=== PATIENT | male | born 1980 | race Caucasian/White ===

== ENCOUNTER → 2017-10-16 | Outpatient (CLI) | payer OTHER ==
[~2017-10-16] VITALS: Ht 185.4 cm; Wt 133.1 kg
[2017-10-16 12:57] VITALS: BP 162/88; PULSE 92; Ht 185.4 cm; Wt 133.1 kg
== END | disposition home or self-care (01) ==
LOC: C.NEUR 12:30
PROVIDERS: ATTEND Internal Medicine Pulmonary Disease
DX: G47.30 Sleep apnea, unspecified (principal); E66.9 Obesity, unspecified; I10 Essential (primary) hypertension

== ENCOUNTER → 2017-11-20 | Outpatient (CLI) | payer OTHER | END | disposition home or self-care (01) | LOC: C.NEUR 08:30 | PROVIDERS: ATTEND Internal Medicine Pulmonary Disease | DX: G47.30 Sleep apnea, unspecified (principal) ==

== ENCOUNTER → 2017-12-25 | Outpatient (CLI) | payer OTHER ==
[~2017-12-25] VITALS: Ht 185.4 cm; Wt 131.5 kg
[2017-12-25 15:27] VITALS: BP 153/90; PULSE 80; Ht 185.4 cm; Wt 131.5 kg
== END | disposition home or self-care (01) ==
LOC: C.NEUR 14:20
PROVIDERS: ATTEND Physician Assistant Medical
DX: G47.30 Sleep apnea, unspecified (principal); E66.9 Obesity, unspecified; I10 Essential (primary) hypertension

== ENCOUNTER → 2018-01-03 | Outpatient (CLI) | payer OTHER ==
--- NOTE | 2018-01-04 06:30 | PAP/PSG TECHNICIAN REPORT ---
[facility] Captain Airline Pilot Polysomnogram Report Study name: None Report date: 01/04/2018 Study date: 01/03/2018 Referring Physician: Santiago Chamorro M.D. Name: ORLANDO SHALOM Interpreting Physician: Santiago Chamorro M.D. Date of : 1980 Captain Airline Pilot: Jessica Saunders RPSGT. Sex: Male Age: 37 Study Type: PSG PAP Weight: 289 lbs 18 in Height: 37 years, Height 6' 1" Neck Circum: BMI: 38.12 Medications: NONE REPORTED Patient History 37 yr-old male here for a new CPAP treatment study. He was found to be positive for JOSE via a home sleep study. His AHI was 65. He chose a Mirage FX Soft edge nasal mask size standard from [employer]. The test was started on room air and 4 CMH2O. ETCO2 testing was not utilized during this study. Room 1 Parameters Monitored NPSG: E1-M2, E2-M1, Fp1-M2, Fp2-M1, F3-M2, F4-M2, F4-M1, C3-M2, C4-M2, C4-M1, O1-M2, O2-M2, O2-M1, T3-M2, T4-M1, P3-M2, P4-M1, CHIN1, CHIN2, HR, EKG, Legs, PFLOW, SNOR, FLOW, CFLOW, Tidal Volume, THOR, ABDO, SpO2, PLTH, CPRESS, ETCO2 Wave, ETCO2, pH Sleep Architecture Sleep Stages Time at Lights Off 10:19:34 PM STAGES Time (min.) TST (%) Time at Lights On 5:33:04 AM Wake 48.5 -- Total Recording Time (TRT) 433.50 min. N1 49.5 13 Total Sleep Period (TSP) 418.5 min. N2 262.5 68 Total Sleep Time (TST) 385.0min. N3 24.0 6 Awake Time 48.5 min. REM 49.0 13 Wake after Sleep Onset 33.5 min. Sleep Efficiency (SE) 89 % Sleep Onset Latency (PIOTR) 15.0 min. Number of Stage 1 Shifts None Awakenings 21 Stage Changes 93 Number of REM periods 5 REM 49.0 13 REM Latency 88.0 min. NREM 336.0 87 Body Position Analysis Supine Right Left Side Prone Vertical Total Sleep Time (min.) 44.8 0.0 358.9 358.95 0.0 0.0 Total Sleep Time (%) 7% 0% 93% 93 0% N/A% Total Sleep Time REM (min.) 0.0 0.0 49.0 None 0.0 0.0 Total Sleep Time NREM (min.) 26.1 0.0 309.9 None 0.0 0.0 Intermittent Wake (min.) 18.8 0.0 29.7 None 0.0 0.0 Total Sleep Period (%) 8% None None None None None Arousals Myoclonus (PLM) * Events Count Index Events Count Index Spontaneous 47 7 Events Awake (PLMW) 38 47.0 Respiratory 32 5.5 Events Asleep w/ Arousal (PLMA) 2 0.3 PLM 2 0 Events Asleep w/o Arousal (PLMS) 66 10.3 Snoring 5 1 Total Asleep 68 10.6 Total 86 13 Total 106 15 Respiratory Analysis * CA OA MA CH H RERA Total Count 106 0 0 0 208 2 314 Index 16.5 0.0 0.0 0 32.4 0 49.2 Mean Duration 12.7 0.0 0.0 0.00 16.3 16.6 15.1 Longest Duration 20.6 0.0 0.0 0.00 0.0 19.1 29.4 Respiratory Event Summary Total Supine ~Supine Right Left Prone REM NREM Apneas Count 106 24 82 N/A 82 N/A 2 104 Index 16.5 55 14 N/A 13.7 N/A 2 19 Hypopneas (4% Desat) Count 208 25 183 N/A 183 N/A 22 186 Index 32.4 57.6 31 N/A 30.6 N/A 26.9 33.2 Apneas & All Hypopneas Count 314 49 265 N/A 265 N/A 24 290 Index 48.9 113 44 N/A 44 N/A 29.4 51.8 Respiratory Events (Crude Oil Treater+All Hyp+RERA) Count 314 50 266 N/A 266 N/A 24 290 Index 49.2 115 44 N/A 44.5 N/A 29.4 52.1 Respiratory Related Arousal Count 32 50 29 N/A 29 N/A 0 35 Index 5.5 14 5 N/A 5 N/A 0 6 Snoring Analysis Supine Right Left Prone REM NREM Total Snore duration 6.0 min Snores count 18 N/A 319 N/A 4 333 337 Snore mean duration 1.1 Sec Snores index 41 N/A 53 N/A 4.9 59.5 52.5 TST with snoring (%) 1.6% Desaturation Event Summary: Minimum %SpO2 Event Count Mean/Min/Max Duration(sec.) Desaturation Index % Time In Bed > 90 367 16.3 / 5.3 / 60.0 58.9 86.9 86 - 90 1 7.0 / 7.0 / 7.0 1.1 12.2 81 - 85 0 N/A 0.0 0.8 76 - 80 0 N/A 0.0 0.1 71 - 75 0 N/A 0.0 0.0 66 - 70 0 N/A 0.0 0.0 61 - 65 0 N/A 0.0 0.0 56 - 60 0 N/A 0.0 0.0 51 - 55 0 N/A 0.0 0.0 < 50 0 N/A 0.0 0.0 Total REM NREM Awake <50% 0.0 min. 0.0 min. 0.0 min. 0.0 min. 51 - 60% 0.0 min. 0.0 min. 0.0 min. 0.0 min. 61 - 70% 0.0 min. 0.0 min. 0.0 min. 0.0 min. 71 - 80% 0.3 min. 0.0 min. 0.2 min. 0.1 min. 81 - 90% 55.9 min. 5.1 min. 49.5 min. 1.3 min. 91 - 100% 373.8 min. 43.8 min. 285.2 min. 44.9 min. Average 93 93 93 96 Minimum SpO2 78 85 78 79 Desaturation Event Index 50.9 33.1 59.8 9.9 # Desat. Events below 89% 176 12 162 2 Time(%) with Saturation below 89% 5.3 0.3 4.8 0.2 Time(min.) with Saturation below 89% 22.7 1.5 20.5 0.8 Time (mins) REM (mins) NREM (mins) % of TST SpO2 Below 90% 312 25 N287 9.3 SpO2 Below 88% 44 0 0 4 Heart Rate Analysis Min (bpm) Max (bpm) Average (bpm) Awake 50 127 64 NREM 49 127 61 REM 49 73 61 Overall 49 127 61 Supplemental O2 Values Minimum O2 level: None Value Start Time End Time Captain Airline Pilot Comments Mr. Peterson slept in the left and supine positions. No cardiac arrhythmias or PLMs noted. No bruxism noted. CPAP was initiated at +4 CMH2O and up-titrated to a level of +9 CMH2O, Cflex 2. Due to central apneas, he was then switched to BiPAP at +11/7 CMH2O and up-titrated to a level of +13/7 CMH2O. He continued to have central apneas, so a rate was then added at 10 BPM. After the rate was added he had constant hypopneas. The pressure was increased from +13/7 CMH2O to +23/13 CMH2O. This range of pressure had very little effect on the hypopnea activity. A Mirage FX Soft edge nasal mask size standard from [employer] was used during titration. He did not wake up to use the restroom during the night. Mr. Peterson stated that he slept poorly. The final report will be interpreted and signed by a sleep physician. The completed physician report will then be placed in the patient medical record. Therapy Event: Therapy (cm H20) 4 5 7 9 7 137 Total Time at Pressure (min.) 33.3 64.9 78.5 67.8 33.0 44.2 TST at Pressure (min.) 18.3 64.9 76.0 57.3 32.5 38.7 # Periods 1 1 1 1 1 1 Sleep Onset (min.) 15.0 0.0 0.0 0.0 0.0 0.0 REM Onset (min.) N/A N/A 4.8 39.3 N/A 5.5 Sleep Efficiency % 55 100 96 84 98 87 Wakefulness (%) 45.0 0.0 3.2 15.5 1.5 12.4 Wakefulness (min.) 15.0 0.0 2.5 10.5 0.5 5.5 NREM 1 (%) 13.5 12.3 0.6 14.0 1.5 39.6 NREM 1 (min.) 4.5 8.0 0.5 9.5 0.5 17.5 NREM 2 (%) 41.5 69.2 56.1 58.7 97.0 27.6 NREM 2 (min.) 13.8 44.9 44.0 39.8 32.0 12.2 NREM 3 (%) 0.0 18.5 14.6 0.7 0.0 0.0 NREM 3 (min.) 0.0 12.0 11.5 0.5 0.0 0.0 REM (%) 0.0 0.0 25.5 11.1 0.0 20.4 REM (min.) 0.0 0.0 20.0 7.5 0.0 9.0 # Arousals 4 15 1 17 3 26 Arousal Index 13.1 13.9 0.8 17.8 5.5 40.3 # Snore 21 14 4 11 21 29 Snore Index 68.7 12.9 3.2 11.5 38.8 45.0 AHI 16.4 25.0 18.2 42.9 136.6 65.1 AHI Supine N/A N/A N/A 84.8 136.9 N/A AHI Non-Supine 16.4 25.0 18.2 31.8 136.3 65.1 NREM AHI 16.4 25.0 10.7 48.2 136.6 78.8 REM AHI N/A N/A 39.0 8.0 N/A 20.0 RDI 16.4 25.0 18.2 42.9 138.4 65.1 # Obstructive 0 0 0 0 0 0 # Central Ap 2 10 4 29 38 18 # Mixed 0 0 0 0 0 0 # Hypopneas 3 17 19 12 36 24 RERAS 0 0 0 0 1 0 Total Respiratory Events 5 27 23 41 75 42 Time Below SpO2 89.00% (min.) 0.0 2.3 1.7 1.5 3.0 4.2 Mean NREM SpO2 (%) 93 93 93 94 92 93 Mean REM SpO2 (%) N/A N/A 92 95 N/A 94 Mean Sleep SpO2 (%) 93 93 92 94 92 93 Min NREM SpO2 (%) 88 84 86 86 84 78 Min REM SpO2 (%) N/A N/A 85 91 N/A 89 Position Supine (min.) 0.0 0.0 0.0 12.0 14.0 0.0 Position Non-supine (min.) 18.3 64.9 76.0 45.3 18.5 38.7 LM Index Sleep 6.5 26.8 1.6 0.0 11.1 14.0 LM Index NREM 6.5 26.8 2.1 0.0 11.1 14.1 LM Index REM N/A N/A 0.0 0.0 N/A 13.3 Mean Heart Rate (bpm) 66 66 64 60 57 59 Min Heart Rate (bpm) 59 60 57 51 51 53 Therapy (cm H20) 31/03 02/04 05/06 07/08 07/09 Total Time at Pressure (min.) 10.0 9.7 8.8 25.8 15.1 42.2 TST at Pressure (min.) 10.0 9.7 8.8 20.8 14.6 33.2 # Periods 1 1 1 1 1 1 Sleep Onset (min.) 0.0 0.0 0.0 0.0 0.0 0.0 REM Onset (min.) N/A N/A 7.6 0.0 N/A 35.2 Sleep Efficiency % 100 100 100 80 96 78 Wakefulness (%) 0.0 0.0 0.0 19.3 3.3 21.3 Wakefulness (min.) 0.0 0.0 0.0 5.0 0.5 9.0 NREM 1 (%) 0.0 0.0 0.0 5.8 3.3 16.6 NREM 1 (min.) 0.0 0.0 0.0 1.5 0.5 7.0 NREM 2 (%) 100.0 100.0 85.7 58.5 93.4 45.6 NREM 2 (min.) 10.0 9.7 7.6 15.1 14.1 19.2 NREM 3 (%) 0.0 0.0 0.0 0.0 0.0 0.0 NREM 3 (min.) 0.0 0.0 0.0 0.0 0.0 0.0 REM (%) 0.0 0.0 14.3 16.4 0.0 16.6 REM (min.) 0.0 0.0 1.3 4.2 0.0 7.0 # Arousals 0 0 0 5 5 10 Arousal Index 0.0 0.0 0.0 14.4 20.5 18.0 # Snore 2 3 1 50 44 137 Snore Index 12.0 18.6 6.8 143.9 180.3 247.2 AHI 125.9 111.7 122.2 63.3 41.0 23.5 AHI Supine N/A N/A N/A N/A N/A N/A AHI Non-Supine 125.9 111.7 122.2 63.3 41.0 23.5 NREM AHI 125.9 111.7 126.7 61.4 41.0 29.7 REM AHI N/A N/A 95.0 70.8 N/A 0.0 RDI 125.9 111.7 122.2 63.3 45.1 23.5 # Obstructive 0 0 0 0 0 0 # Central Ap 0 0 0 5 0 0 # Mixed 0 0 0 0 0 0 # Hypopneas 21 18 18 17 10 13 RERAS 0 0 0 0 1 0 Total Respiratory Events 21 18 18 22 11 13 Time Below SpO2 89.00% (min.) 2.8 2.3 1.3 2.2 0.0 0.5 Mean NREM SpO2 (%) 91 92 92 93 94 94 Mean REM SpO2 (%) N/A N/A 91 92 N/A 96 Mean Sleep SpO2 (%) 91 92 92 93 94 95 Min NREM SpO2 (%) 85 85 86 82 89 83 Min REM SpO2 (%) N/A N/A 87 86 N/A 93 Position Supine (min.) 0.0 0.0 0.0 0.0 0.0 0.0 Position Non-supine (min.) 10.0 9.7 8.8 20.8 14.6 33.2 LM Index Sleep 6.0 12.4 6.8 8.6 20.5 14.4 LM Index NREM 6.0 12.4 7.9 10.8 20.5 13.7 LM Index REM N/A N/A 0.0 0.0 N/A 17.1 Mean Heart Rate (bpm) 56 56 57 57 54 55 Min Heart Rate (bpm) 52 51 53 52 49 49 CPAP REPORT Therapy Detail Time / Page # Comment CPAP 4 cm H2O Nasal Mask Flex Pressure Relief Humidifier on 10:17:30 PM / pg. 128 CPAP 5 cm H2O Nasal Mask Flex Pressure Relief Humidifier on 10:52:54 PM / pg. 199 INCREASED FOR SNORING CPAP 7 cm H2O Nasal Mask Flex Pressure Relief Humidifier on 11:57:46 PM / pg. 329 INCREASED FOR HYPOPNEAS CPAP 9 cm H2O Nasal Mask Flex Pressure Relief Humidifier on 1:16:18 AM / pg. 486 INCREASED FOR MORE HYPOPNEAS BiLevel 11/7 cm H2O Nasal Mask Flex Pressure Relief Humidifier on 2:24:06 AM / pg. 622 DUE TO THE NUMBER OF CENTRAL APNEAS, CHANGED TO BIPAP BiLevel 13/7 cm H2O Nasal Mask Flex Pressure Relief Humidifier on 2:57:06 AM / pg. 688 INCREASED IPAP FOR HYPOPNEAS BiLevel 13/7 cm H2O, Rate 10 bpm Nasal Mask Flex Pressure Relief Humidifier on 3:22:55 AM / pg. 739 RATE ADDED FOR CONTINUED CENTRAL APNEAS BiLevel 15/7 cm H2O, Rate 10 bpm Nasal Mask Flex Pressure Relief Humidifier on 3:41:19 AM / pg. 776 INCREASED IPAP FOR CONSTANT HYPOPNEAS AFTER ADDING THAT RATE BiLevel 17/7 cm H2O, Rate 10 bpm Nasal Mask Flex Pressure Relief Humidifier on 3:51:19 AM / pg. 796 INCREASED IPAP FOR CONSTANT HYPOPNEAS SINCE THE RATE WAS ADDED BiLevel 19/9 cm H2O, Rate 10 bpm Nasal Mask Flex Pressure Relief Humidifier on 4:00:59 AM / pg. 815 INCREASED IPAP FOR CONSTANT HYPOPNEAS SINCE THE RATE WAS ADDED AND INCREASED EPAP TO KEEP THE PRESSURE DIFFERENTIAL OF 10 BiLevel 21/11 cm H2O, Rate 10 bpm Nasal Mask Flex Pressure Relief Humidifier on 4:09:50 AM / pg. 833 INCREASED IPAP FOR CONSTANT HYPOPNEAS SINCE THE RATE WAS ADDED AND INCREASED EPAP TO KEEP THE PRESSURE DIFFERENTIAL OF 10 BiLevel 22/12 cm H2O, Rate 10 bpm Nasal Mask Flex Pressure Relief Humidifier on 4:35:41 AM / pg. 885 INCREASED IPAP FOR CONSTANT HYPOPNEAS SINCE THE RATE WAS ADDED AND INCREASED EPAP TO KEEP THE PRESSURE DIFFERENTIAL OF 10 BiLevel 23/13 cm H2O, Rate 10 bpm Nasal Mask Flex Pressure Relief Humidifier on 4:50:49 AM / pg. 915 INCREASED IPAP FOR CONSTANT HYPOPNEAS SINCE THE RATE WAS ADDED AND INCREASED EPAP TO KEEP THE PRESSURE DIFFERENTIAL OF 10
--- NOTE | 2018-01-04 17:39 | POLYSOMNOGRAPH REPORT ---
CLINICAL DATA: A 37-year-old male with BMI of 38 referred by Lori Alba and his primary care physician for a sleep study with CPAP. He had a home sleep study which showed severe JOSE with an AHI of 65. He used a Mirage FX soft edge nasal mask size standard from [employer]. SLEEP ARCHITECTURE: Total sleep period was 418.5 minutes. Total sleep time was 385 minutes divided between 336 minutes of non-REM sleep and 49 minutes of REM sleep. Sleep onset latency was 15 minutes. REM latency was 88 minutes. Sleep efficiency was 89%. Wake after sleep onset was 33.5 minutes. Sleep consisted of stage N1 13%, stage N2 68%, stage N3 6%, and REM 13%. AROUSAL DATA: 86 arousals were recorded for an index of 13 per hour. PLM DATA: 68 limb movements during sleep were noted for an index of 10.6 with an arousal index of 0.3 per hour. RESPIRATORY DATA: AHI was 48.9. There were 106 central apneic episodes. The longest apneic episode was 20.6 seconds. There were 208 hypopneic episodes with a mean duration of 16.3 seconds. OXIMETRY DATA: Nocturnal hypoxemia was seen. Oxygen tarik was 78% during non-REM sleep. Mean saturation was 93%. Time below 88% was 44 minutes. EKG: Heart rates ranged from 49-127 beats per minute. No arrhythmias were noted. R[employer] FENCE [employer]ILDER'S COMMENTS AND TREATMENT SUMMARY: The patient slept in the left and supine position. CPAP was started and titrated up to 9 cm water pressure. However, the patient developed treatment onset central apnea and was switched to BIPAP and was titrated up to 13/. He continued to have central apneic episodes. A backup rate of 10 breaths per minute was added. Eventually, his BiPAP was titrated up to 23/13. At his final pressure setting, he slept for 33 minutes with an AHI of 23.5. No optimal CPAP or BIPAP pressure was obtained. IMPRESSION: Severe obstructive sleep apnea with incomplete CPAP/BiPAP titration study due to development of treatment onset central apneic episodes. RECOMMENDATIONS: The patient should be considered for a trial of auto CPAP. If that is not effective, then treatment with ASV may be needed. MTDD
== END | disposition home or self-care (01) ==
LOC: C.NEUR 21:00
PROVIDERS: ATTEND Physician Assistant Medical
DX: G47.33 Obstructive sleep apnea (adult) (pediatric) (principal)